=== PATIENT | female | born 1940 | race Caucasian/White ===

== ENCOUNTER → 2016-08-21 | Outpatient (CLI) | payer MEDICARE, BC ==
[~2016-08-21] MED LIST: ASPIRIN E.C. 8181 MG PO; CALCIUM WITH D31 CTB PO; MAREPA1200 MG PO; TIROSINT100 MCG PO
== END ==
LOC: MC.RAD 07:20
DX: Z12.31 Encounter for screening mammogram for malignant neoplasm of breast (principal)

== ENCOUNTER → 2017-08-22 | Outpatient (CLI) | payer MEDICARE, BC | LOC: MC.RAD 07:53 | DX: Z12.31 Encounter for screening mammogram for malignant neoplasm of breast (principal) ==

== ENCOUNTER → 2018-09-11 | Outpatient (CLI) | payer MEDICARE, BC | LOC: MC.RAD 08:33 | DX: Z12.31 Encounter for screening mammogram for malignant neoplasm of breast (principal) ==

== ENCOUNTER → 2019-10-09 | Outpatient (CLI) | payer MEDICARE, BC | LOC: MC.RAD 07:05 | DX: Z12.31 Encounter for screening mammogram for malignant neoplasm of breast (principal) ==

== ENCOUNTER → 2020-10-12 | Outpatient (CLI) | payer MEDICARE, BC | LOC: MC.RAD 13:33 | DX: Z12.31 Encounter for screening mammogram for malignant neoplasm of breast (principal) ==

== ENCOUNTER → 2023-09-10 | Outpatient (CLI) | payer MEDICARE, BC | LOC: COL.RAD 12:51 | DX: R91.1 Solitary pulmonary nodule (principal) ==

== ENCOUNTER → 2023-10-03 | Outpatient (CLI) | payer MEDICARE, BC ==
[~2023-10-03] VITALS: Ht 167.6 cm; Wt 94.4 kg
[~2023-10-03] MED LIST changes: +BIOTIN800 MCG; +CALCIUM CITRATE1 TA7 PO; +COZAAR 50MG50 MG/TAB PO; +FOSAMAX 70MG TA70 MG PO; +OMEGA-31 SGL PO; +SYNTHROID0.112 MG/T PO
[2023-10-03 09:16] VITALS: BP 137/69; PULSE 80; TEMP 97.7
[2023-10-03 09:54] VITALS: BP 145/83; PULSE 83
--- NOTE | 2023-10-03 09:54 | NUR ---
Pt to ct per ambulation. Pt onto ct table in prone position. Monitors applied and O2 at 2l/nc.
[2023-10-03 10:00] VITALS: BP 135/76; PULSE 81
--- NOTE | 2023-10-03 10:05 | NUR ---
Dr Caldwell into talk with pt regarding procedure. Dr Caldwell states procedure not necessary at this time due to no change since 2020. Recommended ct scan in 6 months.
--- NOTE | 2023-10-03 10:08 | NUR ---
Pt back to holding area. Pt getting dressed. Pts family to room. Explained to daughter and . Pt and family out to car per ambulation.
== END ==
LOC: COL.RAD 09:00
DX: R91.1 Solitary pulmonary nodule (principal)

== ENCOUNTER 2024-03-18 13:37 | Outpatient (CLI) | payer MEDICARE, BC ==
[~2024-03-18] VITALS: Ht 167.6 cm; Wt 95.5 kg
[2024-03-18] MEDS ORDERED: RT ADVAIR HFA 1112 G IH (14:11)
[2024-03-18] MEDS ORDERED: PROLIA60 MG/ML SQ (14:12)
[2024-03-18] MEDS ORDERED: Denosumab 60 MG/ML SYRINGE SQ ONE (14:15)
== END 2024-03-18 14:31 | disposition home or self-care (01) ==
LOC: EUO 13:37
DX: M81.0 Age-related osteoporosis without current pathological fracture (principal)
CPT/HCPCS: J0897